=== PATIENT | male | born 1970 | race Caucasian/White ===

== ENCOUNTER 2016-08-13 07:41 | Observation (INO) | payer BC ==
[~2016-08-13] VITALS: Ht 177.8 cm; Wt 111.1 kg
[2016-08-13] MEDS ORDERED: ORPHENADRINE CITRATE 60 MG/2 ML VIAL. IM ONE (08:00)
[2016-08-13] MEDS ORDERED: KETOROLAC TROMETHAMINE 60 MG/2 ML INJ. IM ONE (08:00)
--- NOTE | 2016-08-13 08:08 | PHYS DOC ---
Past Medical History Past Medical History: Diabetes-Type II, Hypertension, Kidney Stone Additional Past Medical Histor: DDD Past Surgical History: Other Additional Past Surgical Histo: KIDNEY STONES REMOVAL, UMBILLICAL HERNIA REPAIR Alcohol Use: Heavy Additional Information: PT STATES HE DRINKS "MODERATLEY" Drug Use: Marijuana Social History Narrative: PT DENIES DRUGS AT THIS TIME. HAS HX OF USE. Adult General Chief Complaint Chief Complaint: BACK PAIN OR INJURY HPI HPI Patient is a 46 year old male presents to the emergency department by way of EMS with a history of back pain when he fell on his back. 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 Patient states he sneezed yesterday morning and had severe low back pain in which he was unable to go to work. Patient denies trauma or injury, denies numbness or tingling in the lower legs, denies loss of stool or urine. Patient states yesterday he was able to ambulate with pain but today position of comfort is lying supine. Patient states he has a hx of bulging disc from a fall. He take morphine ER at home with the last dose being last night. Review of Systems Review of Systems Constitutional: Denies fever or chills [] Eyes: Denies change in visual acuity, redness, or eye pain [] HENT: Denies nasal congestion or sore throat [] Respiratory: Denies cough or shortness of breath [] Cardiovascular: No additional information not addressed in HPI [] GI: Denies abdominal pain, nausea, vomiting, bloody stools or diarrhea [] : Denies dysuria or hematuria [] Musculoskeletal: C/o low back pain denies joint pain Integument: Denies rash or skin lesions [] Neurologic: Denies headache, focal weakness or sensory changes [] Endocrine: Denies polyuria or polydipsia [] Current Medications Current Medications Current Medications Medications (Trade) Dose Ordered Sig/Emery Start Time Stop Time Status Last Admin Dose Admin Fentanyl Citrate (Fentanyl 2ml Vial) 50 mcg 1X ONCE 08/13/16 09:30 08/13/16 09:31 DC Ketorolac Tromethamine (Toradol Im) 60 mg 1X ONCE 08/13/16 08:00 08/13/16 08:06 DC 08/13/16 08:40 60 MG Orphenadrine Citrate (Norflex) 60 mg 1X ONCE 08/13/16 08:00 08/13/16 08:06 DC 08/13/16 08:40 60 MG Allergies Allergies Allergies Coded Allergies Type Severity Reaction Last Updated Verified No Known Drug Allergies 05/06/14 No Physical Exam Physical Exam Constitutional: Well developed, well nourished, no acute distress, non-toxic appearance. [] HENT: Normocephalic, atraumatic, bilateral external ears normal, oropharynx moist, no oral exudates, nose normal. [] Eyes: PERRLA, EOMI, conjunctiva normal, no discharge. [] Neck: Normal range of motion, no tenderness, supple, no stridor. [] Cardiovascular:Heart rate regular rhythm, no murmur [] Lungs & Thorax: Bilateral breath sounds clear to auscultation [] Abdomen: Bowel sounds normal, soft, no tenderness, no masses, no pulsatile masses. [] Skin: Warm, dry, no erythema, no rash. [] Back: No tenderness Extremities: No tenderness, no cyanosis, no clubbing, ROM intact, no edema. Peripheral pulse 2+ cap refill brisk < 2 seconds. Patient with good sensation noted to the lower extremities. Neurologic: Alert and oriented X 3, normal motor function, normal sensory function, no focal deficits noted. [] Psychologic: Affect normal, judgement normal, mood normal. [] Current Patient Data Vital Signs Vital Signs Date Time Temp Pulse Resp B/P (MAP) Pulse Ox O2 Delivery O2 Flow Rate FiO2 08/13/16 07:47 98.3 98 16 136/97 (110) 98 Room Air 98.3 EKG EKG [] Radiology/Procedures Radiology/Procedures [] Course & Med Decision Making Course & Med Decision Making Pertinent Labs and Imaging studies reviewed. (See chart for details) 0930 Patient had been provided with norflex and toradol for pain. Patient was re -assessed with patient able to move legs with slight discomfort noted. Patient attempted to sit at bedside with patient starting to yell and pushing himself back into the bed stating, "it hurts, I cannot do it, the muscles are having spasm." [address] Arroyo in regard to observation status. Recommended referrals to neuro. [] Dragon Disclaimer Dragon Disclaimer This electronic medical record was generated, in whole or in part, using a voice recognition dictation system. Departure Departure Impression: Primary Impression: Back pain Disposition: ADMITTED INPATIENT Admitting Physician: Zulma Arroyo Condition: STABLE Referrals: NO PCP (PCP) ARTEMIO BUCK ASSISTANT SUPERINTENDENT FOR [employer] August 13, 2016 08:08
[2016-08-13] MEDS ORDERED: fentaNYL PF VIAL 100 MCG/2 ML VIAL IV ONE (09:30)
[2016-08-13] MEDS ORDERED: LISI1TAB7 PO (09:51)
[2016-08-13] MEDS ORDERED: METF-620 PO (09:51)
[2016-08-13] MEDS ORDERED: MORP30TA PO (09:53)
[2016-08-13] MEDS ORDERED: OMEP20CA9 PO (09:53)
[2016-08-13] MEDS ORDERED: GABA-586 PO (09:55)
[2016-08-13] MEDS ORDERED: MORP30TA3 PO (10:03)
--- NOTE | 2016-08-13 10:32 | ACF ---
Admission Forms Criteria BACK PAIN Clinical Indications for Admission to Inpatient Care (Place 'X' for any and all applicable criteria): Admission is indicated for ANY ONE of the following (1)(2)(3)(4)(5)(6): [ ]I. Inpatient admission required rather than observation care (Also use Back Pain: Observation Care as appropriate) because of ANY ONE of the following [ ]a) Severe pain requiring acute inpatient management [ ]b) Immediate inpatient surgery [ ]c) Other condition, treatment or monitoring requiring inpatient admission [ ]II. Spine fracture with significant damage or threat of damage to vertebral column or spinal cord [ ]III. Progressive or severe neurologic deficit [ ]IV. Suspected spinal infection (e.g., epidural abscess, vertebral osteomyelitis)(10) [ ]V. Suspected cause requires inpatient treatment (eg, aortic dissection) [ ]. Cauda equina syndrome as indicated by ANY ONE of the following (9): [ ]a) Bowel dysfunction [ ]b) Bladder dysfunction [ ]c) Saddle anesthesia [ ]d) Neurologic abnormality suggesting cauda equina impingement Extended stay beyond goal length of stay may be needed for (3)(25): [ ]a) Spinal cord compression from stenosis, disk, or tumor (8)(9) [ ]b) Traumatic or pathologic vertebral fracture (33) [ ]c) Vertebral infection(10) [ ]d) Severe pain that is difficult to control [ ]e) Older patients(65 years or older) The original [employer] content created by [employer] has been revised. The portions of the content which have been revised are identified through the use of italic text or in bold, and [employer] [facility] has neither reviewed nor approved the modified material. All other unmodified content is copyright [employer]. Please see references footnoted in the original [employer] edition 2016 ZEHRA CRUZ August 13, 2016 10:32
[2016-08-13 10:51] VITALS: BP 122/94
[2016-08-13] MEDS: fentaNYL PF VIAL 100 MCG/2 ML VIAL IV PRN ×4 (12:34→22:27)
[2016-08-13] MEDS: PANTOPRAZOLE 40 MG TABLET.DR. PO SCH (13:44)
[2016-08-13] MEDS: MORPHINE ER 30 MG TABLET.ER PO SCH ×2 (13:44→19:59)
[2016-08-13] MEDS: LISINOPRIL 20 MG TABLET PO SCH (13:44)
[2016-08-13] MEDS ORDERED: GABAPENTIN 300 MG CAPSULE. PO SCH ×2 (14:00→21:00)
[2016-08-13 15:00] VITALS: BP 119/85
--- NOTE | 2016-08-13 17:12 | PDOC ---
SUBJECTIVE Subjective Briefly, 46M with acute exacerbation of chronic low back pain. Had for several years. Attributes onset to activities while serving in . Denies leg pain or paresthesias. Denies focal weakness or bowel/bladder changes. Denies acute apparent injury. Denies recent treatments. No recent lumbar imaging. BAPTISTE , sensation intact LT. Will acquire lumbar MRI to further assess. OBJECTIVE Vital Signs Vital Signs Date Time Temp Pulse Resp B/P (MAP) Pulse Ox O2 Delivery O2 Flow Rate FiO2 08/13/16 16:08 Room Air 08/13/16 15:19 Room Air 08/13/16 15:00 98.6 117 20 119/85 (96) 95 Room Air 98.6 08/13/16 13:44 85 122/94 08/13/16 13:44 Room Air 08/13/16 12:34 Room Air 08/13/16 10:51 98.1 85 20 122/94 (103) 96 Room Air 98.1 08/13/16 10:50 Room Air 08/13/16 09:47 85 17 138/90 (106) 98 Room Air 08/13/16 09:47 16 98 Room Air 08/13/16 09:18 88 17 147/107 (120) 98 Room Air 08/13/16 08:45 84 16 128/94 (105) 97 Room Air 08/13/16 07:47 98.3 98 16 136/97 (110) 98 Room Air 98.3 MONICA URIAS MD August 13, 2016 17:12
[2016-08-13] MEDS: HYDROcodone/APAP 7.5/325MG 1 TAB TABLET PO PRN (17:53)
[2016-08-13] MEDS: IBUPROFEN 800 MG TABLET. PO SCH (17:53)
--- NOTE | 2016-08-13 18:17 | HP ---
ADMIT DATE: 08/13/2016 CHIEF COMPLAINT: Back pain. HISTORY OF PRESENT ILLNESS: The patient is a pleasant 46-year-old male who has got long history of back pain. It has been flaring quite a bit in the past few days. He tried increasing his home meds, but that is not working. He rates it a 10/10. In fact, he had to call the ambulance to get out of bed. I discussed the case with the ER physician. We are going to admit the patient and consult Neurosurgery. PAST MEDICAL HISTORY: Chronic back pain, diabetes, hyperlipidemia, hypertension, kidney stones, umbilical hernia. ALLERGIES: None. FAMILY HISTORY: Coronary artery disease. SOCIAL HISTORY: He works in heavy equipment. He does not drink, smoke, or take drugs. MEDICATIONS: Reviewed, please refer to MRAD. REVIEW OF SYSTEMS: GENERAL: No history of weight change, weakness or fevers. SKIN: No bruising, hair changes or rashes. EYES: No blurred, double or loss of vision. NOSE AND THROAT: No history of nosebleeds, hoarseness or sore throat. HEART: No history of palpitations, chest pain or shortness of breath on exertion. LUNGS: Denies cough, hemoptysis, wheezing or shortness of breath. GASTROINTESTINAL: Denies changes in appetite, nausea, vomiting, diarrhea or constipation. GENITOURINARY: No history of frequency, urgency, hesitancy or nocturia. NEUROLOGIC: Denies history of numbness, tingling, tremor or weakness. PSYCHIATRIC: No history of panic, anxiety or depression. ENDOCRINE: No history of heat or cold intolerance, polyuria or polydipsia. EXTREMITIES: The patient complains of back pain. PHYSICAL EXAMINATION: VITAL SIGNS: Temperature afebrile, pulse 60, respirations 18, blood pressure 144/90. GENERAL: He is alert, cooperative. HEART: Normal S1, S2. LUNGS: Clear. ABDOMEN: Soft, positive bowel sounds. EXTREMITIES: No edema. SKIN: No rashes. PSYCHIATRIC: He is anxious. VASCULAR: Good capillary refill. ENDOCRINE: No thyromegaly. LYMPHATICS: No cervical nodes. HEMATOPOIETIC: No bruising. ASSESSMENT AND PLAN: Radiculopathy. The patient has been admitted, will consult Dr. Flowers, PT, OT. Consider IV steroids, IV narcotics, resume his home meds. PROGNOSIS: Guarded. NIAL Hansel RUGGIERO DO DR: Patito JOB#: [id number] / [id number]
[2016-08-13 19:00] VITALS: BP 116/87
[2016-08-13] MEDS: diazePAM 5 MG TABLET PO SCH (22:20)
--- NOTE | 2016-08-14 04:49 | CONS ---
DATE OF CONSULTATION: 08/13/2016 ATTENDING PHYSICIAN: Dr. Arroyo. The patient was seen at the request of Dr. Arroyo for rehab evaluation. HISTORY OF PRESENT ILLNESS: This is a 46-year-old right-handed male known to me in the past. He is with chronic lower back pain from degenerative disk disease of lumbar vertebrae without any clinical evidence of ongoing lumbar radiculopathy, also with known diabetes mellitus type 2, hypertension and kidney stones. The patient has been taking MS Contin 30 mg twice daily for pain and he had a lumbar corset and he started having some increasing back pain since 08/11/2016. He went to work and did not do that much physical activity yesterday morning while he is trying ____ he started having increasing back spasm and pain. He was unable to attend to his work. The patient was admitted to the Emergency Room this morning. He denies any falls. He denies any tingling or numbness in the extremities or any trouble with his bowel or bladder control or any weakness in the lower extremities. The patient is being followed by the [facility] at present time for his medications refill. The patient usually knows how to take care of himself. He had significant pain after trigger point injections in the past, so he is somewhat hesitant about them. The patient is not known allergic to any medication at home. He is also taking ibuprofen as an anti-inflammatory medication without any GI upset. The patient has been using a heating pad at home. PHYSICAL EXAMINATION: Today revealed a middle-aged male. He is alert, oriented to time, place, person and circumstance and follows commands appropriately, moves all 4 extremities voluntarily where he had 5/5 grade muscle strength and deep tendon reflexes are 2+ and symmetrical and he had equal perception of touch and pinprick sensation bilaterally. Straight leg raising test is negative bilaterally. He had pain free range of motion of all four extremity joints. He had painful limited movements of his lumbar spine with tenderness to palpation over left sacroiliac joint area and adjoining lower lumbar paraspinal muscles with moderate degree of paraspinal muscle spasm. He is independent with rolling from side to side. I have not tested his transfers or ambulation skills at this time as he had significant pain trying to come to sitting this morning in the Emergency Room. His skin is intact at this time. ASSESSMENT: 1. Exacerbation of chronic lower back pain in a patient with known degenerative disk disease of lumbar vertebrae without any clinical evidence of ongoing lumbar radiculopathy. 1. Diabetes mellitus type 2. 3. Hypertension. RECOMMENDATIONS: To try Valium for muscle spasm as cyclobenzaprine and Norflex are not helping much, to try ice packs, to get him using his lumbar corset, which is in his van at present time. I have advised him to ask his to bring it to get him up as tolerated tomorrow, to consider trigger point injections or lumbar epidural steroid injections if his pain persists interfering with his mobility. Dr. Arroyo, I appreciate asking me to participate in the care of this interesting patient. I will be glad to follow him with you as needed for his rehabilitation. AYANNA MURPHY MD DR: EDY/josi JOB#: [id number] / [id number]
[2016-08-14] MEDS: diazePAM 5 MG TABLET PO SCH (05:48)
[2016-08-14] MEDS: HYDROcodone/APAP 7.5/325MG 1 TAB TABLET PO PRN (05:48)
[2016-08-14] MEDS: fentaNYL PF VIAL 100 MCG/2 ML VIAL IV PRN (06:07)
[2016-08-14 07:00] VITALS: BP 117/79
[2016-08-14] MEDS: PANTOPRAZOLE 40 MG TABLET.DR. PO SCH (08:09)
[2016-08-14 08:10] VITALS: BP 117/79
[2016-08-14] MEDS: MORPHINE ER 30 MG TABLET.ER PO SCH (08:10)
[2016-08-14] MEDS: LISINOPRIL 20 MG TABLET PO SCH (08:10)
[2016-08-14] MEDS: IBUPROFEN 800 MG TABLET. PO SCH (08:10)
--- NOTE | 2016-08-14 08:49 | PDOC ---
PROGRESS NOTES Subjective Subjective He feels better and ceci like to cancel mri scan. Objective Objective Vital Signs Date Time Temp Pulse Resp B/P (MAP) Pulse Ox O2 Delivery O2 Flow Rate FiO2 08/14/16 08:10 90 117/79 08/14/16 08:10 Room Air 08/14/16 07:00 97.5 20 95 97.5 Intake and Output 08/14/16 07:00 Intake Total 400 ml Output Total 2100 ml Balance -1700 ml Intake Oral 400 ml Output Urine Total 2100 ml Physical Exam Physical Exam He is comfortable and getting up with lumbar corset and he would like to go home. Assessment Assessment Problems Medical Problems: (1) Back pain Status: Acute Plan Plan of [facility] with out patient follow up at [facility]. Comment Review of Relevant I have reviewed the following items rolando (where applicable) has been applied. Medications Current Medications Ketorolac Tromethamine (Toradol Im) 60 mg 1X ONCE IM Last administered on 08/13 08:40; Start 08/13/16 at 08:00; Stop 08/13/16 at 08:06; Status DC Orphenadrine Citrate (Norflex) 60 mg 1X ONCE IM Last administered on 08:40; Start 08/13/16 at 08:00; Stop 08/13/16 at 08:06; Status DC Fentanyl Citrate (Fentanyl 2ml Vial) 50 mcg 1X ONCE IV Last administered on 09:47; Start 08/13/16 at 09:30; Stop 08/13/16 at 09:31; Status DC Fentanyl Citrate (Fentanyl 2ml Vial) 50 mcg PRN Q2HR PRN IV PAIN Last administered on 08/14/16 06:07; Start 08/13/16 at 10:00; Stop 08/14/16 at 09:59 Metformin HCl (Glucophage) 1,000 mg BIDWMEALS PO Last administered on 08:10; Start 08/13/16 at 17:00 Morphine Sulfate (Ms Contin) 30 mg BID PO Last administered on 08/14/16 08:10 ; Start 08/13/16 at 14:00 Gabapentin (Neurontin) 300 mg DAILY PO ; Start 08/13/16 at 14:00; Stop 08/13/16 at 14:00; Status DC Lisinopril (Prinivil) 20 mg DAILY PO Last administered on 08/14/16 08:10; Start 08/13/16 at 14:00 Pantoprazole Sodium (Protonix) 40 mg DAILYAC PO Last administered on 08/14/16 08:09; Start 08/13/16 at 14:00 Gabapentin (Neurontin) 300 mg QHS PO Last administered on 08/13/16 19:58; Start 08/13/16 at 21:00 Diazepam (Valium) 5 mg Q8HRS PO Last administered on 08/14/16 05:48; Start at 22:00 Acetaminophen/ Hydrocodone Bitart (Lortab 7.5/325) 1 tab PRN Q6HRS PRN PO PAIN Last administered on 08/14/16 05:48; Start 08/13/16 at 17:45 Ibuprofen (Motrin) 800 mg TID PO Last administered on 08/14/16 08:10; Start at 18:00 Active Scripts Active Reported Morphine Sulfate Er (Morphine Sulfate) 30 Mg Tablet.er 1 Tab PO BID Gabapentin 300 Mg Capsule 300 Mg PO DAILY Omeprazole 20 Mg Capsule.dr 1 Cap PO DAILY Metformin Hcl 1,000 Mg Tablet 1,000 Mg PO BIDWMEALS Lisinopril-Hctz 20-25 Mg Tab (Lisinopril/Hydrochlorothiazide) 1 Each Tablet 1 Tab PO DAILY Vitals/I & O Vital Sign - Last 24 Hours 08/13/16 08/13/16 08/13/16 08/13/16 09:18 09:47 09:47 10:50 Pulse 88 85 Resp 16 17 B/P (MAP) 147/107 (120) 138/90 (106) Pulse Ox 98 98 98 O2 Delivery Room Air Room Air Room Air Room Air 08/13/16 08/13/16 08/13/16 08/13/16 10:51 12:34 13:44 13:44 Temp 98.1 98.1 Pulse 85 85 Resp 20 B/P (MAP) 122/94 (103) 122/94 Pulse Ox 96 O2 Delivery Room Air Room Air Room Air 08/13/16 08/13/16 08/13/16 08/13/16 15:00 15:19 17:53 19:00 Temp 98.6 98.7 98.6 98.7 Pulse 117 89 Resp 20 17 B/P (MAP) 119/85 (96) 116/87 (97) Pulse Ox 95 94 O2 Delivery Room Air Room Air Room Air Room Air 08/13/16 08/13/16 08/13/16 08/13/16 19:59 20:00 20:01 22:27 Resp 20 20 23 O2 Delivery Room Air Room Air Room Air Room Air 08/14/16 08/14/16 08/14/16 08/14/16 00:01 05:48 06:07 06:43 Resp 18 23 24 18 O2 Delivery Room Air Room Air Room Air Room Air 08/14/16 08/14/16 08/14/16 08/14/16 06:43 07:00 08:10 08:10 Temp 97.5 97.5 Pulse 90 90 Resp 18 20 B/P (MAP) 117/79 (92) 117/79 Pulse Ox 95 O2 Delivery Room Air Room Air Room Air Intake and Output 08/13/16 08/13/16 08/14/16 15:00 23:00 07:00 Intake Total 400 ml Output Total 250 ml 1850 ml Balance -250 ml -1450 ml AYANNA MURPHY MD August 14, 2016 08:49
[2016-08-14] MEDS ORDERED: OXYC-323 PO (09:03)
[2016-08-14] MEDS ORDERED: DIAZ5TAB PO (09:03)
--- NOTE | 2016-08-14 13:23 | PDOC3 ---
Discharge Summary Visit Information Date of Admission: August 13, 2016 Date of Discharge: August 14, 2016 Admitting Diagnosis Comment: 1. Exacerbation of chronic lower back pain in a patient with known degenerative disk disease of lumbar vertebrae without any clinical evidence of ongoing lumbar radiculopathy. 1. Diabetes mellitus type 2. 3. Hypertension. Final Diagnosis Problems Medical Problems: (1) Back pain Status: Acute Brief Hospital Course Allergies Allergies Coded Allergies Type Severity Reaction Last Updated Verified No Known Drug Allergies 05/06/14 No Vital Signs Vital Signs Date Time Temp Pulse Resp B/P (MAP) Pulse Ox O2 Delivery O2 Flow Rate FiO2 08/14/16 08:10 90 117/79 08/14/16 08:10 Room Air 08/14/16 07:00 97.5 20 95 97.5 Brief Hospital Course Mr. Alas is a 46 old MALE, admitted for back pain, Better after valium and percocet, Physiatry consulted. pT did not want MRI here, he claims he goes to [place] for it, stable, clinically, no red flags of back pain. RX provided by physiatry Pt seen and examined DisPo; home RX : valium, percocet Dw physiatry, RN and pt and time 30 Discharge Information Condition at Discharge: Improved, Stable Disposition/Orders: D/C to Home Scheduled Diazepam (Valium), 5 MG PO TID Gabapentin (Gabapentin), 300 MG PO DAILY, (Reported) Lisinopril/Hydrochlorothiazide (Lisinopril-Hctz 20-25 Mg Tab), 1 TAB PO DAILY, ( Reported) Metformin Hcl (Metformin Hcl), 1,000 MG PO BIDWMEALS, (Reported) Morphine Sulfate (Morphine Sulfate Er), 1 TAB PO BID, (Reported) Omeprazole (Omeprazole), 1 CAP PO DAILY, (Reported) Oxycodone/Apap 5-325 (Percocet 5-325 Mg Tablet), 1 TAB PO QID BINTA FLOWERS MD August 14, 2016 13:23
== END 2016-08-14 14:00 | disposition home or self-care (01) ==
LOC: ER 07:41 → 5 SOUTH 09:28
PROVIDERS: ADMIT Internal Medicine; ATTEND Internal Medicine
DX: M51.16 Intervertebral disc disorders with radiculopathy, lumbar region (principal); G89.29 Other chronic pain; E11.9 Type 2 diabetes mellitus without complications; E78.5 Hyperlipidemia, unspecified; I10 Essential (primary) hypertension; Z87.442 Personal history of urinary calculi; Z82.49 Family history of ischemic heart disease and other diseases of the circulatory system
CPT/HCPCS: 96372; 96374; 96376; G0378; G0379; J1885; J2360; J3010

== ENCOUNTER 2020-01-27 10:30 | Inpatient (IN) | payer BC ==
[~2020-01-27] VITALS: Ht 175.3 cm; Wt 86.0 kg
[~2020-01-27 10:30] MED LIST: DIAZ5TAB PO; GABA300C18 PO; LISI1TAB20 PO; METF10007 PO; MORP-16 PO; MORP30TA PO; OMEP20CA16 PO; OXYC1TAB15 PO
[2020-01-27] MEDS ORDERED: METF500T16 PO (10:44)
[2020-01-27] MEDS ORDERED: oxyCODONE IR 5 MG TABLET PO PRN (10:45)
[2020-01-27] MEDS ORDERED: MORPHINE ER 30 MG TABLET.ER PO SCH (11:30)
[2020-01-27] MEDS: metFORMIN 500 MG TABLET PO SCH ×2 (11:30→17:00)
[2020-01-27] MEDS ORDERED: methylPREDNISolone ACETATE 40 MG/ML VIAL. IM ONE ×2 (12:45)
[2020-01-27] MEDS ORDERED: BUPIVACAINE MPF 0.25% 10 ML VIAL. IJ ONE (12:45)
[2020-01-27] MEDS ORDERED: diazePAM 5 MG TABLET PO PRN (13:15)
--- NOTE | 2020-01-27 13:18 | PDOC4 ---
PROCEDURE Procedure At his request,I have injected painful sacroiliac joint area bilaterally with 2ml of methylprednisone 40 mg/ 1 ml solution mixed with 4 ml of bupivacaine 0.25% solution under aseptic skin technique with alcohol skin prep and he tolerated the procedures satisfactorily without any side effects. AYANNA MURPHY MD Jan 27, 2020 13:18
--- NOTE | 2020-01-27 13:28 | HP ---
ADMIT DATE: 01/27/2020 REASON FOR HOSPITALIZATION: Severe lower back pain with radiation to both lower extremities, interfering with his mobility and self-care since he returned from work on 01/25/2020. The patient was seen in my office this morning. He had significant difficulty with getting in and out of the chair and his brought him in a wheelchair. Usually, he comes walking without any assistive devices despite chronic back pain from degenerative disk disease and degenerative joint disease of lumbar vertebrae. He has been taking MS Contin 30 mg twice daily and oxycodone 15 mg 1 every 6 hours on as needed basis for breakthrough pain. Physical examination today revealed a middle-aged male. He is alert, oriented to time, place, person and circumstance and follows commands appropriately. The patient with chronic lower back pain from degenerative disk disease and degenerative joint disease of lumbar vertebrae with lumbar radiculitis, diabetes mellitus, hyperlipidemia, hypertension, kidney stones, umbilical hernia. 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 Family history of coronary artery disease. He is not known allergic to any medication. The patient lives with his family. He also is dealing with his 's recent diagnosis of carcinoma. The patient denies any trouble with his bowel or bladder control or any weakness or numbness in his lower extremities. PHYSICAL EXAMINATION: Today revealed a middle-aged male. The patient is alert, oriented to time, place and person, in moderately severe distress. He had painful limited movements of his lumbar spine with localized tenderness to palpation over lumbar intraspinous ligamentous area and over sacroiliac joint area without any significant paraspinal muscle spasm. He also had minimal tenderness to palpation over adjoining lumbar paraspinal muscles. He had back pain while trying to raise his leg straight bilaterally. He had pain free range of motion on both hip, knee and ankle joints. He had 5/5 grade muscle strength in his lower extremities. Deep tendon reflexes are 1-2+ and symmetrical and he had equal perception of touch and pinprick sensation bilaterally. He is independent, rolling from side to side. I have not tested his transfers or ambulation skills while he is lying in bed, but this morning, I saw him in the office, he required significant help in coming to a standing portion and during transfers. His skin is intact at this time. ASSESSMENT: 1. Exacerbation of chronic lower back pain from degenerative disk disease and degenerative joint disease of lumbar vertebrae with lumbar radiculitis to rule out any new herniated lumbar disk and also to rule out lumbar spinal stenosis. 2. History of diabetes mellitus, hyperlipidemia, hypertension, under control, usually with medicine. RECOMMENDATIONS: To obtain MRI scan of the lumbar vertebrae, to rule out any new disk herniation or lumbar spinal stenosis. To consider neurosurgical consult if MRI scan shows any new findings. To proceed with injecting painful sacroiliac joint area to help ease his pain. He already had lumbar corset. He knows proper body mechanics, to have physical therapy and occupational therapy to see him. To consult hospitalist doctors if his blood pressure remains high. AYANNA MURPHY MD DR: EDY/josi JOB#: [id number] / [id number]
[2020-01-27 14:49] VITALS: BP 129/91
--- NOTE | 2020-01-27 16:41 | RAD ---
LUMBAR SPINE WO CONTRAST History: Reason: increasing back pain / Spl. Instructions: / History: Technique: Multiplanar, multi sequential MR imaging was performed of the lumbar spine. Comparison: None Findings: Normal vertebral body height and alignment. No fracture. Conus terminates at the normal location. No evidence of nerve root clumping. L1-L2: No canal or neuroforaminal narrowing. L2-L3: Left subarticular/foraminal disc protrusion with annular fissure. Mild left neuroforaminal narrowing. Abutment of the left descending L3 nerve root. No canal narrowing. No neuroforaminal narrowing. L3-L4: Left subarticular disc protrusion with annular fissure. Bibasilar reticular recess narrowing. No canal narrowing. Mild facet arthropathy. No neuroforaminal narrowing. L4-L5: Disc bulge with central annular fissure. Moderate facet arthropathy. Mild subarticular recess narrowing. No canal narrowing. Mild bilateral neuroforaminal narrowing. L5-S1: Right subarticular disc protrusion with annular fissure. Right-sided radicular recess narrowing with abutment of the descending right S1 nerve root. No canal narrowing. Mild facet arthropathy. Mild bilateral neuroforaminal narrowing, right greater than left. Impression: 1. Multilevel lumbar spondylosis most prominent L2-L3 and L5-S1. 2. L2-L3 left subarticular disc protrusion contacting the descending left L3 nerve root. Correlate for radiculopathy. 3. L5-S1 right subarticular disc protrusion contacting the descending S1 nerve root. Correlate for radiculopathy. Electronically signed by: Igor Salazar DO (01/27/2020 4:38 PM) [id number]
--- NOTE | 2020-01-27 19:23 | NUR ---
Pt was given education, discharge instructions, and follow up info. Pt was discharged and no Iv was ever inserted so no Iv removed. Pt is alert x4, stable, and reporting less pain. Pt was given walker for 20$ cost from staffing office before discharging, since he recently lost his walker. All belongings left with pt at time of discharge. Pt was taken via wheelchair to vehicle, and drove him home. Pt left at 1820.
--- NOTE | 2020-01-28 12:02 | DS ---
DATE OF DISCHARGE: 01/27/2020 REASON FOR HOSPITALIZATION: This is a 49-year-old male with chronic lower back pain from degenerative disk disease and degenerative joint disease of lumbar vertebrae with lumbar radiculitis, has been taking care of himself with both long-term and shorter acting narcotic pain medication and he has been working on a regular basis. He came to my office on the morning of 01/27/2020 admitting severe lower back pain, started after he came back from work on the evening of 01/25/2020. Since then, he is having difficulty to come to a standing position or get in and out of the back. Prior to the onset of that problem, he has been independent with mobility and self-care skills, not using an assistive device yet. 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 The patient denies any numbness or weakness in the extremities or trouble with his bowel or bladder control. In the office, he had difficulty to come to a standing position and to get in and out of a chair, requiring maximal assistance that is the reason for admission to make sure he does not have any new herniated disk or lumbar spinal stenosis. PAST MEDICAL HISTORY: Includes diabetes mellitus, hyperlipidemia, hypertension, kidney stones, umbilical hernia. The patient had a recent colonoscopy done at [facility]. ALLERGIES: The patient is not known allergic to any medication. FAMILY HISTORY: Coronary artery disease. He is also dealing recently with his 's diagnosis of carcinoma. Since admission, he had MRI scan of his lumbar vertebrae without contrast, which revealed multilevel lumbar spondylosis, most prominent at L2-L3 and L5-S1. At L2-L3 level, left subarticular foraminal disk protrusion with annular fissure, mild left neural foraminal narrowing, abutment of left descending L3 nerve root without any canal or neural foraminal narrowing. At L3-L4, left subarticular disk protrusion with annular fissure, bibasilar reticular recess narrowing, no canal narrowing, mild facet arthropathy, no neural foraminal narrowing at L4-L5 disk bulge with central annular fissure, moderate facet arthropathy, mild subarticular recess narrowing, no canal narrowing, mild bilateral neural foraminal narrowing, at L5-S1, right subarticular disk protrusion with annular fissure right-sided radicular lateral recess narrowing with abutment of the descending right S1 nerve root, no canal narrowing, mild facet arthropathy, mild bilateral neural foraminal narrowing, right greater than left side; progress note, he had clinically significant limitation of lumbar spine range of motion with tenderness to palpation mainly over sacroiliac joint area bilaterally and adjoining lumbar paraspinal muscles with moderate paraspinal muscle spasm and straight leg raising test causes pain in his lower back. He had 5/5 grade muscle strength in his extremities and deep tendon reflexes are 1 to 2+ and symmetrical and he had equal perception of touch and pinprick sensation bilaterally. He had pain free range of motion of both hip joints. SKIN: Intact. ASSESSMENT: Chronic lower back pain from degenerative disk disease and degenerative joint disease of lumbar vertebrae with lumbar radiculitis with recent exacerbation and mobility and self-care limitations. RECOMMENDATIONS: At his request, I have injected under aseptic skin technique after skin preparation using alcohol swab of bilateral sacroiliac joints using 2 mL of methylprednisone 40 mg per 1 mL solution mixed with 4 mL of 0.25% bupivacaine or Marcaine solution and he tolerated the procedure satisfactorily with significant easing of his pain and without any side effects. After injection, he felt better and able to get around better using his lumbar corset and a roller walker and he would like to go home. I have also started him on diazepam 5 mg every 8 hours for muscle spasm. In essence, he is taking MS Contin 30 mg q.12 hours and oxycodone hydrochloride 50 mg 1 p.o. q.6 hours for breakthrough pain. He was advised to use physical modalities, continue with his home exercise program and use a roller walker while up and advise him to try to avoid lifting, pulling, pushing weights more than 10-15 pounds and also avoid frequent bending and to change position frequently and use a roller walker for the time being, I would like to see him for followup on as needed basis on outpatient basis. He is on a regular diet. FINAL DIAGNOSES: 1. Exacerbation of chronic lower back pain from degenerative disk disease and degenerative joints of lumbar vertebrae with lumbar radiculitis with significant herniation of the disk at L2-L3, L3-L4, L4-L5 and L5-S1 level with some degree of neural foraminal compromise, but no evidence of lumbar spinal stenosis. 2. Diabetes mellitus. 3. Hypertension. He was advised to keep follow up with his family physician at [facility] for his diabetes control. AYANNA MURPHY MD DR: EDY/josi JOB#: [id number] / [id number]
== END 2020-01-27 19:27 | disposition home or self-care (01) | DRG 552 ==
LOC: 4 NORTH 10:30
PROVIDERS: ADMIT Physical Medicine & Rehabilitation; ATTEND Physical Medicine & Rehabilitation
PROC: 3E0U3GC Introduction of Other Therapeutic Substance into Joints, Percutaneous Approach (ICD-10-PCS; principal; 2020-01-27)
DX: M47.26 Other spondylosis with radiculopathy, lumbar region (principal); G89.29 Other chronic pain; E11.9 Type 2 diabetes mellitus without complications; E78.5 Hyperlipidemia, unspecified; I10 Essential (primary) hypertension; M51.16 Intervertebral disc disorders with radiculopathy, lumbar region; M51.17 Intervertebral disc disorders with radiculopathy, lumbosacral region; Z87.442 Personal history of urinary calculi; Z82.49 Family history of ischemic heart disease and other diseases of the circulatory system
CPT/HCPCS: 72148; J1030; J3490; G0378

== ENCOUNTER 2020-09-03 16:35 | Emergency (ER) | payer BC ==
[~2020-09-03 16:35] MED LIST changes: +METF500T16 PO
== END 2020-09-03 16:50 | disposition left against medical advice (07) ==
LOC: ER 16:35
DX: M79.661 Pain in right lower leg (principal); Z53.21 Procedure and treatment not carried out due to patient leaving prior to being seen by health care provider

== ENCOUNTER 2021-04-13 13:37 | Emergency (ER) | payer BC ==
[~2021-04-13] VITALS: Ht 175.3 cm; Wt 88.0 kg
[~2021-04-13 13:37] MED LIST changes: -LISI1TAB20 PO; +LISI1TAB39 PO
[2021-04-13] MEDS ORDERED: FAMOTIDINE 20 MG/2 ML VIAL IVP ONE (14:45)
[2021-04-13] MEDS ORDERED: diphenhydrAMINE 50 MG/ML VIAL IVP ONE (14:45)
[2021-04-13] MEDS ORDERED: DEXAMETHASONE SOD PHOS 4 MG/ML VIAL IVP ONE (14:45)
--- NOTE | 2021-04-13 15:16 | PHYS DOC ---
Past Medical History Past Medical History: Diabetes-Type II, Hypertension, Kidney Stone Additional Past Medical Histor: CHRONIC BACK PAIN Past Surgical History: Other Additional Past Surgical Histo: KIDNEY STONES REMOVAL, UMBILLICAL HERNIA REPAIR Smoking Status: Current Every Day Smoker Alcohol Use: Sober Drug Use: Marijuana Adult General Chief Complaint Chief Complaint: FACE PROBLEM HPI HPI Patient is a 51 year old male who presents with face swelling that began two days ago and has progressively worsened. Patient states his symptoms started with some nasal congestion and then his face began swelling. Patient states his skin is dry and weeping as well. He has attempted to use neosporin to treat the skin dryness and cracking. Patient states he has had his mother and her dog in the house recently, as her dementia has worsened and she is sundowning. He reports the dog has been on the furniture since staying in the home. Patient denies eye pain, discharge, visual field deficits, blurred vision, oropharyngeal swelling or discomfort, shortness of breath, cough, abd pain, NVD. Review of Systems Review of Systems Constitutional: Denies fever or chills Eyes: See HPI HENT: See HPI Respiratory: See HPI Cardiovascular: No additional information not addressed in HPI GI: See HPI : Denies dysuria or hematuria Musculoskeletal: Denies back pain or joint pain Integument: See HPI Neurologic: Denies headache, focal weakness or sensory changes All other systems were reviewed and found to be within normal limits, except as documented in this note. Current Medications Current Medications Current Medications Medications (Trade) Dose Ordered Sig/Emery Start Time Stop Time Status Last Admin Dose Admin Dexamethasone Sodium Phosphate (Decadron) 8 mg 1X ONCE 04/13/21 14:45 04/13/21 14:49 DC 04/13/21 15:30 8 MG Diphenhydramine HCl (Benadryl) 50 mg 1X ONCE 04/13/21 14:45 04/13/21 14:49 DC 04/13/21 15:30 50 MG Famotidine (Pepcid Vial) 20 mg 1X ONCE 04/13/21 14:45 04/13/21 14:49 DC 04/13/21 15:30 20 MG Allergies Allergies Allergies Coded Allergies Type Severity Reaction Last Updated Verified No Known Drug Allergies 05/06/14 No Physical Exam Physical Exam Constitutional: Well developed, well nourished, no acute distress, non-toxic appearance. HENT: Normocephalic, atraumatic, bilateral external ears normal, oropharynx moist, no oral exudates, no oropharyngeal mucosal swelling or irritation appreciated, no macroglossia, bilateral nares swollen mucosa with visible mucus. Eyes: PERRLA, EOMI, conjunctiva swollen and injected, mucus discharge from bilateral eyes, periorbital swelling appreciated bilaterally. Neck: Normal range of motion, no tenderness, supple, no stridor. Skin: Facial swelling that extends from mid forehead down to perioral area, most significant swelling is periorbital and bilateral maxillary regions, skin is dry & cracking with some serous drainage. Extremities: No tenderness, no cyanosis, no clubbing, ROM intact, no edema. Neurologic: Alert and oriented x4, steady and symmetrical gait, no focal deficits noted. Current Patient Data Vital Signs Vital Signs Date Time Temp Pulse Resp B/P (MAP) Pulse Ox O2 Delivery O2 Flow Rate FiO2 04/13/21 15:58 76 17 151/97 (115) 100 Room Air 04/13/21 13:58 98.1 98.1 Vital Signs Date Time Temp Pulse Resp B/P (MAP) Pulse Ox O2 Delivery O2 Flow Rate FiO2 04/13/21 15:58 76 17 151/97 (115) 100 Room Air 04/13/21 13:58 98.1 83 16 161/93 (115) 98 Room Air 98.1 Course & Med Decision Making Course & Med Decision Making Pertinent Labs and Imaging studies reviewed. (See chart for details) Patient is a 51-year-old diabetic male who presents with 3-day history of nasal congestion and facial swelling. Patient cannot identify any specific triggers for his symptoms including but not limited to outdoor allergens, soaps, detergents, lotions. New environmental allergen of his mother's dog being in the home is the only identifiable trigger. Patient will be treated here in the emergency department with IV Benadryl, Pepcid and dexamethasone. On reevaluation, patient appears to have improved slightly in the periorbital swelling. Patient was informed of supportive and preventative treatment m easures. He understands and is agreeable to discharge plan. Dragon Disclaimer Dragon Disclaimer This electronic medical record was generated, in whole or in part, using a voice recognition dictation system. Departure Departure Impression: Primary Impression: Chronic allergic conjunctivitis Additional Impression: Contact dermatitis Disposition: HOME / SELF CARE / HOMELESS Condition: IMPROVED Referrals: NO PCP (PCP) Patient Instructions: Allergic Conjunctivitis, [id number], Conjunctivitis (Viral and Bacterial), Contact Dermatitis, [id number] Additional Instructions: EMERGENCY DEPARTMENT GENERAL DISCHARGE INSTRUCTIONS Thank you for coming to [facility] Emergency Department (ED) today and trusting us with you care. We trust that you had a positive ex perience in our Emergency Department. If you wish to speak to the department management, you may call the director at . YOUR FOLLOW UP INSTRUCTIONS ARE FOLLOWS: 1. Follow up with your primary care doctor, who may be able to provide allergy testing or a referral for it. If you do not have a primary doctor, please ask for a resource list of physicians or clinics that may be able to assist you with follow up care. 2. The emergency provider has interpreted your imaging studies, if any were ordered. The radiology retail experience specialist also reviewed them. If there is a change in the findings, you will be notified in 48 hours when at all possible. 3. If a lab test or culture has been done, your results will be reviewed and you will be notified if you need a change in treatment. 4. Follow instructions verbalized to you and refer to the printouts if needed. - Zyrtec tablet daily - Flonase nasal spray daily - Benadryl tablets every 6 hours while face/eyes remain swollen/irritated - Aquaphor ointment (after small spot test) for dry/cracking skin - Eye ointment [] ADDITIONAL INSTRUCTIONS AND INFORMATION: 1. Your care today has been supervised by a physician who is specially trained in emergency care. Many problems require more than one evaluation for a complete diagnosis and treatment. We recommend that you schedule your follow up appointment as recommended to ensure complete treatment of you illness or injury. If you are unable to obtain follow up care and continue to have a problem, or if your condition worsens, we recommend that you return to the ED. 2. We are not able to safely determine your condition over the phone nor are we able to give sound medical advice over the phone. For these safety reasons, if you call for medical advice we will ask you to come to the ED for further evaluation. 3. If you have any questions regarding these discharge instructions please call the ED at . SAFETY INFORMATION: In the interest of safety, wellness, and injury prevention; we encourage you to wear your seat belt, if you smoke; quite smoking, and we encourage family to use a protective helmet for bicycling and other sporting events that present an increased risk for head injury. IF YOUR SYMPTOMS WORSEN OR NEW SYMPTOMS DEVELOP, OR YOU HAVE CONCERNS ABOUT YOUR CONDITION; OR IF YOUR CONDITION WORSENS WHILE YOU ARE WAITING FOR YOUR FOLLOW UP APPOINTMENT; EITHER CONTACT YOUR PRIMARY CARE DOCTOR, THE PHYSICIAN WHOSE NAME AND NUMBER YOU WERE GIVEN, OR RETURN TO THE ED IMMEDIATELY. Scripts Erythromycin Base (Erythromycin) 1 Gm Oint...g. 1 MAGEN OU TID for 5 Days, #1 BOX Prov: KATHARINE MACK 04/13/21 Fluticasone Propionate (FLUTICASONE PROPIONATE NASAL SPRAY) 16 Gm Stryker.susp 2 SPRAY NS DAILY, #1 INHALER 0 Refills Prov: KATHARINE MACK 04/13/21 Cetirizine Hcl (ZYRTEC) 10 Mg Tablet 1 TAB PO DAILY, #30 TAB 0 Refills Prov: KATHARINE MACK 04/13/21 Prednisone (PREDNISONE) 20 Mg Tablet 1 TAB PO UD, #19 TAB 3 tablets by mouth days 1-3 2 tablets by mouth days 4-6 1 tablet by mouth days 7-9 0.5 tablet by mouth days 10 & 11 Prov: KATHARINE MACK 04/13/21 Problem Qualifiers Additional Impression: Contact dermatitis Contact dermatitis type: allergic Contact dermatitis trigger: unspecified trigger Qualified Codes: L23.9 - Allergic contact dermatitis, unspecified cause KATHARINE MACK Apr 13, 2021 15:16
[2021-04-13] MEDS ORDERED: PRED20TA PO (15:53)
[2021-04-13] MEDS ORDERED: FLUT16SP NS (15:53)
[2021-04-13] MEDS ORDERED: CETI10TA74 PO (15:53)
[2021-04-13] MEDS ORDERED: ERYT1OIN3 OU (15:53)
[2021-04-13 15:58] VITALS: BP 151/97
== END 2021-04-13 15:59 | disposition home or self-care (01) ==
LOC: ER 13:37
DX: H10.45 Other chronic allergic conjunctivitis (principal); L23.9 Allergic contact dermatitis, unspecified cause; E11.9 Type 2 diabetes mellitus without complications; I10 Essential (primary) hypertension; G89.29 Other chronic pain; F17.200 Nicotine dependence, unspecified, uncomplicated; Z87.442 Personal history of urinary calculi
CPT/HCPCS: 96374; 96375; 99284; J1100; J1200; J3490